=== PATIENT | female | born 1975 | race Hispanic/Latino ===

== ENCOUNTER → 2018-07-06 | Day surgery (SDC) | payer BC ==
[2018-07-04 09:11] LABS: BASOPHILS % 0.2 % (0.0-1.0); EOSINOPHILS # (AUTO) 0.1 (0.0-0.4); EOSINOPHILS % 1.5 % (0.0-6.0); HEMATOCRIT 35.7 % (34.2-44.1); LYMPHOCYTES # (AUTO) 2.2 (1.0-3.2); LYMPHOCYTES % 24.6 % (18.0-39.1); MEAN CORPUSCULAR HEMOGLOBIN 30.8 pg (28-32); MEAN CORPUSCULAR HGB CONC 33.6 g/dL (31-35); MEAN CORPUSCULAR VOLUME 91.5 fL (81-99); MONOCYTES # (AUTO) 0.5 (0.2-0.8); MONOCYTES % 5.3 % (4.4-11.3); NEUTROPHILS # (AUTO) 6.1 (2.1-6.9); NEUTROPHILS % 68.1 % (38.7-80.0); PLATELET COUNT 248 x10e3/uL (140-360); RED CELL DISTRIBUTION WIDTH 12.6 % (11.7-14.4)
--- NOTE | 2018-07-04 09:38 | Diagnostic Imaging Report ---
EXAMINATION: PA and lateral views of the chest. COMPARISON: None CLINICAL HISTORY: Preoperative study for foot surgery DISCUSSION: Lungs are well-inflated without focal consolidation, pleural effusion, or pneumothorax. Cardiomediastinal contour and pulmonary vasculature are within normal limits. No acute osseous abnormalities. IMPRESSION: No acute cardiopulmonary abnormalities. Signed by: Dr. Manoj Britt M.D. on 07/04/2018 9:35 AM
[2018-07-04 09:57] LABS: ANION GAP 9.7 mmol/L (8-16); BLOOD UREA NITROGEN 12 mg/dL (7-26); BUN/CREATININE RATIO 16 (6-25); CALCIUM 8.5 mg/dL (8.4-10.2); CARBON DIOXIDE 26 mmol/L (22-29); CHLORIDE 104 mmol/L (98-107); CREATININE, SERUM 0.74 mg/dL (0.57-1.11); EST GLOMERULAR FILTRATION RATE > 60 ML/MIN (60-); GLUCOSE 99 mg/dL (74-118); POTASSIUM 3.7 mmol/L (3.5-5.1); SODIUM 136 mmol/L (136-145)
[~2018-07-06] MED LIST: ACETAMINOPHEN 1000 MG/100 ML IV ONE; BACITRACIN ZINC 15 GM OINT ONE; BETAMETHASONE DISODIUM PHOS 6 MG/ML VIAL ONE; BUPIVACAINE HCL 0.5% INJ 30 ML VIAL INJ ONE; CEFAZOLIN SOD 1 GM/NS 50ML 50 ML IV ONE; DEXAMETHASONE SOD PHOS INJ 4 MG/ML VIAL ONE; FENTANYL CITRATE/PF 100MCG/2 ML INJ ONE; KETOROLAC TROMETHAMINE 30 MG/ML VIAL ONE; LIDOCAINE HCL 1% LOCAL INJ 20 ML VIAL ONE; LIDOCAINE HCL 2% LOCAL INJ 5 ML SDV VIAL INJ ONE; MIDAZOLAM HCL 2 MG/2 ML VIAL ONE; NORGESTIMATE-E1 EAC1 PO; ONDANSETRON HCL INJ 2MG/ML 2ML 2 MG/ML VIAL ONE; PROPOFOL IV EMULSION 10 MG/ML 20 ML VIAL ONE; SEVOFLURANE INHAL SOLN 250 ML PEN BTL ONE
--- OUTSIDE RECORDS SUMMARY | 2018-07-06 05:32 | XMS REPORT ---
Author Author [facility] Address Unknown Phone Unavailable Care Team Providers Care Spiral Binder Name Role Phone CHRIS HENDERSON Unavailable Unavailable Problems This patient has no known problems. Allergies, Adverse Reactions, Alerts This patient has no known allergies or adverse reactions. Medications This patient has no known medications. Results Test Description Test Time Test Comments Text Results Atomic Results Result Comments CHEST 2 VIEWS 2018-07-04 09:33:00 [place] [address] Patient Name: CARMEN ANGELES MR #: [id number] : 1975 Age/Sex: 42/F Req #: [id number] Adm Physician: Ordered by: CHRIS HENDERSON DPM Report #: [id number] Location: OR Room/Bed: Procedure: [id number] DX/CHEST 2 VIEWS Exam Date: Exam Time: REPORT STATUS: Signed EXAMINATION: PA and lateral views of the chest. COMPARISON: None CLINICAL HISTORY: Preoperative study for foot surgery DISCUSSION: Lungs are well-inflated without focal consolidation, pleural effusion, or pneumothorax. Cardiomediastinal contour and pulmonary vasculature are within normal limits. No acute osseous abnormalities. IMPRESSION: No acute cardiopulmonary abnormalities. Signed by: Dr. Luís Whelan M.D. on 07/04/2018 9:35 AM Dictated By: LUÍS WHELAN MD 4 Transcribed By: ANDREAS on 07/04/18934 COPY TO: CHRIS HENDERSON DPM
--- NOTE | 2018-07-06 10:17 | Diagnostic Imaging Report ---
EXAM: Exam: Right foot 2 views History: Postsurgical Comparison: None. Findings: See impression Impression: Postsurgical changes of the right foot include a surgical screw and pin traversing the first metatarsal with associated osteotomy changes. A surgical pin traverses the phalanges of the fourth ray. Tubing and catheter material overlies the forefoot. Refer to operative report for full details of the procedure. Signed by: Dr. Manoj Britt M.D. on 07/06/2018 10:14 AM
[2018-07-06 10:20] VITALS: BP 138/85
--- NOTE | 2018-07-06 13:29 | Operative Report ---
DATE OF PROCEDURE: 07/06/2018 SURGEON: Eamon Sagastume DPM PREOPERATIVE DIAGNOSES: 1. Painful hallux valgus deformity, right foot. 2. Painful contracted hammertoe, fourth digit, right. 3. Painful contracted hammertoes, fifth digit, right. 4. Painful heel spur, right foot. 5. Tarsal tunnel syndrome, right foot. POSTOPERATIVE DIAGNOSES: 1. Painful hallux valgus deformity, right foot. 2. Painful contracted hammertoe, fourth digit, right. 3. Painful contracted hammertoes, fifth digit, right. 4. Painful heel spur, right foot. 5. Tarsal tunnel syndrome, right foot. OPERATIVE PROCEDURES: 1. Gerardo bunionectomy with screw fixation, right foot. 2. Arthroplasty of fourth digit with K-wire fixation of fourth digit, right foot. 3. Arthroplasty of fifth digit with K-wire fixation of fourth digit, right foot. 4. Resection of plantar calcaneal spur with plantar fascia release. 5. Neurolysis of tibial nerve. 6. Neurolysis of medial plantar nerve. 7. Neurolysis of lateral plantar nerve. 8. Intraoperative use of fluoroscopy. 9. Trigger point shot of cortisone. 10. Application of posterior splint. ANESTHESIA: General. HEMOSTASIS: Pneumatic thigh tourniquet at 350 mmHg. PROCEDURE IN DETAIL: The patient was taken into the operating room, placed on the operating table in the supine position. Following induction of general anesthesia by the anesthesiologist, Webril wraps were placed around the patient's right thigh followed by application of right thigh tourniquet. The right lower extremity was then prepped and draped in the usual aseptic manner. The following procedures were then performed. PROCEDURE #1: Gerardo bunionectomy with screw fixation, right foot. Attention was directed to the dorsal medial aspect of the first MPJ where a 6 cm linear incision was performed. Incision was deepened down to the joint capsule. Longitudinal capsulotomy was performed exposing the dorsomedial exostosis of the first metatarsal head. Using oscillating saw, dorsomedial exostosis was excised from the operation site in toto. A V-osteotomy was then performed from medial to lateral. Capital fragment was then transpositioned laterally. Upon adequate surgical and anatomical reduction utilizing proper AO technique, a 2.0 x 16 mm cortical screw in conjunction with a janet, 0.045 K-wire was used to achieve stability of the osteotomy site. Redundant bone medially was excised via the use of an oscillating saw and rotating bur. PROCEDURES #2 AND #3: Arthroplasty of fourth and fifth digits with K-wire fixation of the fourth. Attention was then directed to the above-mentioned toes where a 3 cm linear incision was performed. Incision was deepened down to the joint capsule. Transverse capsulotomy was then performed exposing the head of the proximal phalanx. Using oscillating saw, head of the proximal phalanx was excised from the operation site in toto. Fourth toe was still noted to be contracted, so a 0.045 K-wire was introduced up to metatarsophalangeal joint to achieve proper anatomical reduction. PROCEDURE #4: Resection of plantar calcaneal spur with medial plantar fascia release. Attention was then directed to the medial aspect of the right heel where a 3-4 cm linear incision was performed. Incision was deepened down to the plantar fascia level. Medial half of the plantar fascia was cut at its insertion site exposing the plantar calcaneal spur utilizing reciprocating bur. The medial plantar calcaneal spur was excised from the operation site in toto. All rough and bony edges were rasped smooth. PROCEDURES #5, #6, AND #7: Neurolysis of tibial nerve, neurolysis of medial plantar nerve, and neurolysis of lateral plantar nerve, right foot. Attention was then directed to the medial aspect of the right tarsal canal where a curvilinear incision was performed posterior to the medial malleolus down into the edward pedis. The incision was then deepened via sharp and blunt dissection down to the flexor retinaculum. Flexor retinaculum was then cut utilizing meticulous dissection. The tibial nerve was then isolated and all soft tissue was bluntly dissected free. The incision was then deepened down to the edward pedis and neurolysis of the medial and lateral plantar nerves were performed with all soft tissue adhesions released via blunt dissection. All areas were then copiously flushed with sterile antibiotic solution and suction. PROCEDURE #8: Intraoperative use of fluoroscopy then used to make sure proper alignment and fixation was achieved. Closure was then obtained utilizing 3-0 Vicryl, 4-0 Vicryl, and 4-0 nylon for capsule, subcutaneous tissues, and skin. A TLS drain was inserted into the calcaneal aspect any type of hematoma formation. The intraoperative use of fluoroscopy revealed a plantar calcaneal spur still present being a lateral tuberosity spur. PROCEDURE #9: Trigger point shot of cortisone was then given to the first and fourth interspace of the right foot. Then, approximately 18 mL of 0.5% plain Marcaine plus 10 mL of 1% Xylocaine plain were used to achieve local anesthesia of above-mentioned surgical area. Sterile dressing was applied. Upon release of thigh tourniquet, blood hyperemia was noted immediate to all digits of the patient's right foot. PROCEDURE #10: Application of posterior splint. A properly placed posterior splint was then applied keeping the foot at 90 degrees with respect to the leg to try and prevent any postop complications. The patient was then transferred from the OR to recovery room with vital signs stable, neurovascular status intact. No intraoperative complications were encountered. Blood loss from the surgery was minimal. The patient to remain nonweightbearing with the aid of crutches, keep her foot elevated and is to apply an ice pack to the ankle joint areas. MARGARETH Florian/MARYURIL /[id number]
== END | disposition home or self-care (01) ==
LOC: OR 05:29
PROVIDERS: ATTEND Podiatrist Foot Surgery
DX: M20.11 Hallux valgus (acquired), right foot (principal); M20.41 Other hammer toe(s) (acquired), right foot; M77.31 Calcaneal spur, right foot; G57.51 Tarsal tunnel syndrome, right lower limb; G58.8 Other specified mononeuropathies; E66.01 Morbid (severe) obesity due to excess calories; R05 Cough; R00.1 Bradycardia, unspecified; I44.0 Atrioventricular block, first degree; Z01.810 Encounter for preprocedural cardiovascular examination; Z01.812 Encounter for preprocedural laboratory examination; Z01.818 Encounter for other preprocedural examination
CPT/HCPCS: 28035; 28119; 28285 ×2; 28296; 36415; 64704 ×2; 71046; 73620; 80048; 81025; 85025; 93005; C1713 ×2; J0131; J0690; J0720; J1100; J1885; J2001 ×2; J2250; J2405; J2704